=== PATIENT | male | born 1995 | race Caucasian/White ===

== ENCOUNTER 2022-11-22 18:39 | Emergency (ER) | payer MEDICAID, OTHER ==
[~2022-11-22] VITALS: Ht 170.2 cm; Wt 80.0 kg
[2022-11-22 18:41] VITALS: BP 124/81
[2022-11-22] MEDS ORDERED: TOPUD MT (19:14)
[2022-11-22] MEDS ORDERED: ACETAMINOPHEN 325MG TABLET PO ONE (19:15)
== END 2022-11-22 20:00 | disposition home or self-care (01) ==
LOC: ER 18:39
DX: R51.9 Headache, unspecified (principal); F20.9 Schizophrenia, unspecified
CPT/HCPCS: 99283

== ENCOUNTER 2023-08-22 19:00 | Emergency (ER) | payer MEDICAID, OTHER ==
[~2023-08-22] VITALS: Ht 175.3 cm; Wt 118.0 kg
[~2023-08-22 19:00] MED LIST: TOPUD MT
[2023-08-22 19:06] VITALS: O2SAT 96
[2023-08-22] MEDS: IBUPROFEN 400MG TABLET PO ONE (20:19)
[2023-08-22 20:42] LABS: *AMPHETAMINES SCREEN URINE NEGATIVE (NEGATIVE); *BARBITURATES SCREEN URINE NEGATIVE (NEGATIVE); *BENZODIAZEPINES SCREEN URINE NEGATIVE (NEGATIVE); *COCAINE SCREEN URINE NEGATIVE (NEGATIVE); CANNABINOID URINE SCREEN NEGATIVE (NEGATIVE); ECSTASY MDMA SCREEN URINE NEGATIVE (NEGATIVE); METHADONE URINE SCREEN Neg (NEGATIVE); OPIATES URINE SCREEN NEGATIVE (NEGATIVE); PHENCYCLIDINE URINE SCREEN NEGATIVE (NEGATIVE)
[2023-08-22 22:24] LABS: BASOPHILS % 0.3 % (0.0-2.0); EOSINOPHILS % 5.3 % (0.0-5.0); HEMATOCRIT. 43.9 % (42.0-52.0); HEMOGLOBIN. 15.1 g/dL (14.0-18.0); LYMPHOCYTES % 34.2 % (20.0-50.0); MEAN CORPUSCULAR HEMOGLOBIN 31.3 pg (28.0-32.0); MEAN CORPUSCULAR HGB CONC 34.3 g/dL (31.0-37.0); MEAN CORPUSCULAR VOLUME 91.1 fL (80.0-94.0); MEAN PLATELET VOLUME 8.7 fl (7.4-10.4); MONOCYTES % 5.7 % (2.0-8.0); NEUTROPHILS % 54.5 % (40.0-76.0); PLATELET 179 x1000/uL (130-400); RED BLOOD CELL COUNT 4.82 mill/uL (4.7-6.1); RED CELL DISTRIBUTION WIDTH 13.7 % (11.6-14.6); WHITE BLOOD COUNT 9.7 x1000/uL (4.5-11.0)
[2023-08-22 22:39] LABS: ACETAMINOPHEN 2 ug/mL (10-30); ALANINE AMINOTRANSFERASE 56 IU/L (10-49); ALBUMIN 4.3 g/dL (3.2-4.8); ASPARTATE AMINOTRANSFERASE 31 IU/L (<34); BILIRUBIN TOTAL 0.4 mg/dL (0.1-1.0); CARBON DIOXIDE 26 mEq/L (21-32); CHLORIDE 106 mEq/L (98-107); CREATININE 0.9 mg/dL (0.6-1.3); ETHANOL BLOOD < 10 mg/dL (<10); GLUCOSE 98 mg/dL (70-105); POTASSIUM 3.5 mEq/L (3.5-5.1); SODIUM 138 mEq/L (136-145); UREA NITROGEN BLOOD 9 mg/dL (9-23)
[2023-08-22 22:47] LABS: CLARITY URINE CLEAR (CLEAR); COLOR URINE YELLOW (YELLOW); GLUCOSE URINE NEGATIVE (NEGATIVE); KETONES URINE NEGATIVE (NEGATIVE); LEUKOCYTE ESTERASE URINE NEGATIVE (NEGATIVE); NITRITE URINE NEGATIVE (NEGATIVE); OCCULT BLOOD URINE NEGATIVE (NEGATIVE); PH URINE 6.5 (4.5-8.0); PROTEIN URINE NEGATIVE (NEGATIVE); SPECIFIC GRAVITY URINE 1.003 (1.005-1.030); UROBILINOGEN URINE 0.2 E.U./dL (0.2-1.0)
[2023-08-23 09:30] VITALS: BP 119/83; PULSE 82; RESP 15; TEMP 98.1
== END 2023-08-23 09:52 | disposition home or self-care (01) ==
LOC: ER 19:00
DX: R45.850 Homicidal ideations (principal); F23 Brief psychotic disorder; R51.9 Headache, unspecified; F17.200 Nicotine dependence, unspecified, uncomplicated; Z20.822 Contact with and (suspected) exposure to COVID-19
CPT/HCPCS: 36415; 80053; 80305; 80307; 80320; 80329; 81003; 85025; 87426; 99283; G0480

== ENCOUNTER 2023-10-31 19:16 | Emergency (ER) | payer MEDICAID ==
[~2023-10-31] VITALS: Ht 175.3 cm; Wt 90.0 kg
[2023-10-31 19:17] VITALS: BP 114/80; PULSE 105; RESP 16; TEMP 98.1; O2SAT 97
[2023-10-31] MEDS ORDERED: OLAN5TAB39 PO (19:20)
[2023-10-31] MEDS ORDERED: IMIT25 PO (19:20)
[2023-10-31] MEDS ORDERED: METOCLOPRAMIDE HCL 10MG TABLET PO ONE (20:15)
[2023-10-31] MEDS ORDERED: ACETAMINOPHEN 325MG TABLET PO ONE (20:15)
[2023-10-31] MEDS ORDERED: KETOROLAC 60MG/2ML VIAL IM ONE (20:15)
== END 2023-10-31 22:46 | disposition home or self-care (01) ==
LOC: ER 19:16
DX: G43.909 Migraine, unspecified, not intractable, without status migrainosus (principal); F20.9 Schizophrenia, unspecified
CPT/HCPCS: 99283

== ENCOUNTER 2023-11-21 19:17 | Emergency (ER) | payer MEDICAID ==
[~2023-11-21] VITALS: Ht 180.3 cm; Wt 114.0 kg
[~2023-11-21 19:17] MED LIST changes: +IMIT25 PO; +OLAN5TAB39 PO
[2023-11-21 19:25] VITALS: O2SAT 100
[2023-11-21 20:42] VITALS: TEMP 98.2
[2023-11-21] MEDS: ACETAMINOPHEN 325MG TABLET PO ONE (20:42)
[2023-11-21 20:45] LABS: BASOPHILS % 0.9 % (0.0-2.0); EOSINOPHILS % 5.7 % (0.0-5.0); HEMATOCRIT. 44.6 % (42.0-52.0); HEMOGLOBIN. 15.6 g/dL (14.0-18.0); LYMPHOCYTES % 27.3 % (20.0-50.0); MEAN CORPUSCULAR HEMOGLOBIN 31.9 pg (28.0-32.0); MEAN CORPUSCULAR HGB CONC 34.9 g/dL (31.0-37.0); MEAN CORPUSCULAR VOLUME 91.5 fL (80.0-94.0); MEAN PLATELET VOLUME 8.2 fl (7.4-10.4); MONOCYTES % 4.8 % (2.0-8.0); NEUTROPHILS % 61.3 % (40.0-76.0); PLATELET 215 x1000/uL (130-400); RED BLOOD CELL COUNT 4.88 mill/uL (4.7-6.1); RED CELL DISTRIBUTION WIDTH 14.1 % (11.6-14.6); WHITE BLOOD COUNT 12.1 x1000/uL (4.5-11.0)
[2023-11-21 20:53] LABS: CHLORIDE 105 mEq/L (98-107); POTASSIUM 3.6 mEq/L (3.5-5.1); SODIUM 139 mEq/L (136-145)
[2023-11-21 20:54] LABS: CARBON DIOXIDE 26 mEq/L (21-32)
[2023-11-21 20:55] LABS: CALCIUM 9.9 mg/dL (8.7-10.4)
[2023-11-21 20:59] LABS: CREATININE 1.2 mg/dL (0.6-1.3); GLUCOSE 98 mg/dL (70-105)
[2023-11-21 21:00] LABS: UREA NITROGEN BLOOD 9 mg/dL (9-23)
[2023-11-21] MEDS: SUMATRIPTAN SUCCINATE 6MG/0.5ML VIAL SUBCUT ONE (22:13)
[2023-11-21 23:00] VITALS: BP 118/84; PULSE 100; RESP 18
[2023-11-21] MEDS: KETOROLAC 60MG/2ML VIAL IM ONE (23:00)
[2023-11-22] MEDS ORDERED: IMIT50 MT (01:16)
[2023-11-22] MEDS ORDERED: ONDA4TAB50 MT (01:16)
[2023-11-22] MEDS ORDERED: TOPUD MT (01:16)
== END 2023-11-22 01:40 | disposition home or self-care (01) ==
LOC: ER 19:17
DX: R51.9 Headache, unspecified (principal); F20.9 Schizophrenia, unspecified
CPT/HCPCS: 99285; 80048; 85025; 36415; 96372; 70450; J1885; J3030